=== PATIENT | male | born 1950 | race Caucasian/White ===

== ENCOUNTER 2021-01-18 16:58 | Emergency (ER) | payer OTHER, SELFPAY ==
[2021-01-18 17:32] VITALS: BP 129/71; PULSE 67; RESP 20; TEMP 36.9; O2SAT 99
--- NOTE | 2021-01-18 18:02 | ED.GENADULT ---
HPI - General Adult General Chief complaint: Back Pain/Injury Stated complaint: Fall Injury/Rib,Back Pain Time Seen by Provider: 01/18/21 17:02 Source: patient Mode of arrival: wheelchair Limitations: no limitations History of Present Illness HPI narrative: 70 y/o male. PMHx HTN, HLD, BPH, Chronic pain Sx. Presents to [facility] today with acute complaints of worsening neck and upper back pain S/P fall last HS. Pt reports to have been on a 2-3 foot stepping stool, suffered a mechanical fall, and fell backward onto concrete floor. He denies LOC, but does endorse pain behind his left ear so thinks he may have hit his head'. No focal weakness, paraesthesia, or loss of extremity/Bowel/Bladder control. He reports pain to his bilateral rib spaces, worse with deep inspiration and mild dyspnea. No chest pain, palpitations, edema. He is not on any anticoagulants. He has not yet sought out medical evaluation until now, today. He tells me he has chronic back pain issues, and he is managed on a regimen of Hydrocodone and Morphine. However, his pain has been worsening and refractory to his current regimen. Client is without additional acute c/o illness upon PE. Related Data Home Medications Medication Instructions Recorded Confirmed diclofenac sodium PO 01/18/21 diclofenac sodium TOPICAL 01/18/21 fludrocortisone mg 01/18/21 hydrocodone-acetaminophen tablet 01/18/21 levothyroxine 01/18/21 morphine PO 01/18/21 omeprazole 01/18/21 oxybutynin chloride 01/18/21 prazosin 01/18/21 sertraline mg 01/18/21 simvastatin mg 01/18/21 tamsulosin mg PO 01/18/21 Allergies Allergy/AdvReac Type Severity Reaction Status Date / Time No Known Allergies Allergy Unverified 12/30/15 14:38 Review of Systems Review of Systems: CONSTITUTIONAL: Denies fever, chills, sweats. EYES: Denies visual changes, redness, discharge. ENT: Denies rhinorrhea, congestion, sore throat, otalgia. CARDIOVASCULAR: Denies chest pain, palpitations, edema. RESPIRATORY: Denies dyspnea, wheezing, cough GASTROINTESTINAL: Denies abdominal pain, nausea, vomiting, diarrhea. GENITOURINARY: Denies dysuria, hematuria, abnormal discharge SKIN: Denies rash or itching. MUSCULOSKELETAL: Acute neck pain, back pain, rib pain, left side head pain. NEUROLOGIC: Denies numbness, or focal weakness. PSYCHIATRIC: Denies anxiety or depression. All systems reviewed & are unremarkable except as noted in HPI and below Exam Narrative: GENERAL: This is a well-nourished, well-developed adult, in no apparent distress. HEAD: normocephalic, atraumatic. No obvious ecchymosis or lacerations. EYES: PERRL. Sclera clear/white. EOM intact. EARS: External ears normal. Mild left side head/ear tenderness, no deformity. NOSE: External nose normal. THROAT: Mucous membranes moist. NECK: With midline cervical neck tenderness originating at levels C2-5. Client has been placed in Cervical collar for stabilization. BACK: Midline upper thoracic back tenderness, midline. Lumbar cleared. CARDIOVASCULAR: Regular rate and rhythm without murmurs, gallops, or rubs. Pulses intact all sites. He does exhibit mild bilateral chest wall tenderness. No crepitus or flailing. Chest wall rises symetrically. RESPIRATORY: Clear to auscultation. Breath sounds equal bilaterally. No wheezes, rales, or rhonchi. GASTROINTESTINAL: Abdomen soft, non-tender, nondistended. Bowel sounds are active. No guarding. SKIN: warm, intact. NEURO: Alert, active, and age appropriate. No focal neurologic deficits. No sensory deficits, moves all extremities equally and without difficulties. Course Course Emergency Course: -Fall from reported 2-3 feet, onto back on concrete. -Cervical neck and thoracic back tenderness, on already compromised and chronic spinal process changes. -No focal neurological deficits. -Client placed in cervical collar for stabilization. He will be transferred to [facility] for higher
== END 2021-01-18 18:30 | disposition short-term general hospital (02) ==
PROVIDERS: Emergency Provider Nurse Practitioner Adult Health
DX: M54.2 Cervicalgia (principal); R07.81 Pleurodynia; R06.00 Dyspnea, unspecified; M54.6 Pain in thoracic spine; W17.89XA Other fall from one level to another, initial encounter; I10 Essential (primary) hypertension; E78.5 Hyperlipidemia, unspecified; N40.0 Benign prostatic hyperplasia without lower urinary tract symptoms
CPT/HCPCS: 99212; G0463; L0140

== ENCOUNTER 2021-01-18 19:20 | Emergency (ER) | payer OTHER, SELFPAY ==
--- NOTE | ~2021-01-18 | XR_ITS ---
EXAMINATION: XR thoracic spine 2V EXAM DATE: 01/18/2021 22:28 INDICATION: Trauma, fall. Back pain. TECHNIQUE: Frontal and lateral projections of the thoracic spine as well as lateral swimmers projecti on of the upper thoracic spine for interpretation. There is no prior study for comparison. FINDINGS: There is moderate mid thoracic dextroscoliosis, mild upper thoracic levoscoliosis. Patient has diffuse idiopathic skeletal hyperostosis (DISH). Patient has diffuse idiopathic skeletal hypero stosis (DISH). There are cholecystectomy clips. There are no acute fractures identified. Paraspinal soft tissue is unremarkable. IMPRESSION: Moderate thoracic scoliosis. Reviewed, dictated and finalized at location A. CULTURAL TECHNICAL OFFICER
--- NOTE | ~2021-01-18 | CT_ITS ---
EXAMINATION: CT brain wo con, CT cervical spine wo con EXAM DATE: 01/18/2021 22:38 INDICATION: Head injury. TECHNIQUE: Spiral CT of the head was performed without contrast. Axial, coronal and sagittal images were reviewed. Spiral CT of the cervical spine was performed without contrast. Axial images were rev iewed. Coronal and sagittal reformatted images were also reviewed. The dose-length product (DLP) fo r this examination was 681.00 (accession [id number]), 419.82 (accession [id number]) mGy-cm. The exposure was tailored according to patient size, and iterative reconstruction (ASIR) was used as additional dose reduction technique. There is no prior study for comparison. FINDINGS: HEAD CT: There is no acute intraparenchymal hemorrhage. No evidence of intraparenchymal brain mass l esion. No evidence of acute infarction. There is mild periventricular and subcortical hypodensity, n onspecific but probably related to small vessel ischemic disease. There is moderate prominence of t he sulci and ventricles related to cerebral atrophy. There is no mass effect or midline shift. There is no obstructive hydrocephalus suspected. There are no extra-axial collections. There are no acute calvarial fractures. Patient has had bilateral ocular lens surgery. Soft tissue is unremarkable. Mild bilateral maxillary sinus mucoperiosteal thickening. CERVICAL CT: There is no evidence of acute cervical fracture. The odontoid process is intact. Pre- dens space is normal. Prevertebral soft tissue is normal. There are no soft tissue abnormalities id entified. There is no disc space widening or traumatic vertebral body subluxation suspected. There is mild cervical dextroscoliosis, evidence of upper thoracic levoscoliosis. There is moderate to elena re cervical spondylosis. A detailed level by level evaluation of spondylosis can be added as addendu m if requested. IMPRESSION: 1. No acute intracranial findings or cervical fracture. 2. Age-related intracranial findings. 3. Cervical spondylosis and scoliosis. Reviewed, dictated and finalized at location A. RVISORY AIR INTERCEPT CONTROLLER IMPRESSION: 1. No acute intracranial findings or cervical fracture. 2. Age-related intracranial findings. 3. Cervical spondylosis and scoliosis.
--- NOTE | ~2021-01-18 | XR_ITS ---
EXAMINATION: [id number]_CR EXAM DATE: 01/18/2021 22:28 INDICATION: Initial encounter following injury, with pain of the ribs bilaterally. TECHNIQUE: Frontal projection of the upper left ribs, frontal projection of the lower left ribs, obli que projection of the left ribs. Frontal projection of the upper right ribs, frontal projection of t he lower right ribs, oblique projection of the right ribs, no prior chest x-ray(s) for interpretation . Comparison is made to prior examination from 12/30/2015. FINDINGS: Slight alteration of the right 6th rib posteriorly, age indeterminate fracture. No acute co rtical break identified. Left ribs unremarkable. There are cholecystectomy clips. No confluent con solidation, pneumothorax or pleural effusion suspected. IMPRESSION: Age-indeterminate nondisplaced right 6th rib fracture posteriorly. Reviewed, dictated and finalized at location A. T SORTER
[2021-01-18 19:24] VITALS: BP 155/81; PULSE 62; RESP 18; TEMP 36.9; O2SAT 100
--- NOTE | 2021-01-18 22:09 | ED.GENADULT ---
HPI - General Adult General Chief complaint: Fall Stated complaint: Fall Time Seen by Provider: 01/18/21 21:01 History of Present Illness HPI narrative: Patient is a 62-year-old male who presents ER with pain status post fall. Yesterday evening he was lifting his right leg to step onto the bench when he fell backwards. He struck his head but did not lose consciousness. Since then he has developed pain in his neck as well as his ribs bilaterally. He also has pain in his mid thoracic region. No lower extremity numbness or tingling. No functional deficit. He has not any blood thinners. Related Data Home Medications Medication Instructions Recorded Confirmed diclofenac sodium PO 01/18/21 diclofenac sodium TOPICAL 01/18/21 fludrocortisone mg 01/18/21 hydrocodone-acetaminophen tablet 01/18/21 levothyroxine 01/18/21 morphine PO 01/18/21 omeprazole 01/18/21 oxybutynin chloride 01/18/21 prazosin 01/18/21 sertraline mg 01/18/21 simvastatin mg 01/18/21 tamsulosin mg PO 01/18/21 Allergies Allergy/AdvReac Type Severity Reaction Status Date / Time No Known Allergies Allergy Unverified 12/30/15 14:38 Review of Systems Review of Systems: All systems reviewed & are unremarkable except as noted in HPI and below Constitutional: Constitutional: Denies chills, Denies fever(s) and Denies weakness ENT: Denies nasal congestion and Denies sore throat Cardiovascular: Cardiovascular: Denies chest pain, Denies rapid heart rate and Denies radiating jaw, neck or arm pain Respiratory: Respiratory: Denies cough and Denies dyspnea Musculoskeletal: Musculoskeletal: Reports back pain, Denies arthralgias, Denies joint swelling and Denies muscle cramps Neurologic: Denies syncope, Denies focal weakness and Denies numbness PMFSH Past Medical History Medical History (Updated 01/19/21 @ 00:01 by Parrish Henriquez) Hyperlipidemia Hypothyroidism Surgical History Surgical History (Updated 01/18/21 @ 23:11 by Kody Goodwin MD) History of cholecystectomy Exam Narrative: GENERAL: Well-appearing, well-nourished, and in no acute distress. HEAD: Normocephalic, atraumatic. ENT: Mucous membranes moist. NECK: Supple. C-spine immobilized. CHEST: Clear to auscultation. No respiratory distress. Tender along the ribs laterally without bruising. HEART: Regular rate and rhythm. Normal peripheral pulses. BACK: Tender to palpation at T8 and in the paraspinal musculature at this level. No abrasions or bruising or step-offs. No reproducible lumbar tenderness. EXTREMITIES: Normal range of motion. No edema. SKIN: Warm, dry, no rash. NEURO: Alert and oriented x3. Course Course Emergency Course: Informed of results. C-Spine cleared. D/c home with muscle relaxers. Vital Signs Vital signs: Vital Signs Temperature 98.4 F 01/18/21 19:24 Pulse Rate 62 01/18/21 19:24 Respiratory Rate 18 01/18/21 19:24 Blood Pressure 155/81 H 01/18/21 19:24 Pulse Oximetry 100 01/18/21 19:24 Temperature 98.4 F 01/18/21 19:24 Pulse Rate 52 L 01/18/21 22:48 Respiratory Rate 13 01/18/21 22:48 Blood Pressure 172/65 H 01/18/21 22:48 Pulse Oximetry 97 01/18/21 22:48 Medical Decision Making Vital Signs Vital Signs: Vital Signs Temperature 98.4 F 01/18/21 19:24 Pulse Rate 62 01/18/21 19:24 Respiratory Rate 18 01/18/21 19:24 Blood Pressure 155/81 H 01/18/21 19:24 Pulse Oximetry 100 01/18/21 19:24 Temperature 98.4 F 01/18/21 19:24 Pulse Rate 52 L 01/18/21 22:48 Respiratory Rate 13 01/18/21 22:48 Blood Pressure 172/65 H 01/18/21 22:48 Pulse Oximetry 97 01/18/21 22:48 Discharge Plan Discharge Clinical Impression: Strain of thoracic back region Patient Disposition: Still a Patient Condition: Stable Instructions: Muscle Strain (ED) Additional Instructions: Return the ER if you have chest pain or shortness of breath, you cannot keep down food or water, you lose
[2021-01-18] MEDS: HYDROcodone/acetaminophen (*CRX) 5-325 MG TABLET 1 TAB PO (22:39)
[2021-01-18 22:48] VITALS: BP 172/65; PULSE 52; RESP 13; O2SAT 97
[2021-01-18 23:30] VITALS: BP 164/66; PULSE 65; RESP 13; O2SAT 98
== END 2021-01-18 23:30 | disposition home or self-care (01) ==
PROVIDERS: Emergency Provider Emergency Medicine; PCP Internal Medicine
DX: S29.012A Strain of muscle and tendon of back wall of thorax, initial encounter (principal); E78.5 Hyperlipidemia, unspecified; E03.9 Hypothyroidism, unspecified; W18.39XA Other fall on same level, initial encounter
CPT/HCPCS: 70450; 71111; 72070; 72125; 99284; A9270; L0140

== ENCOUNTER 2021-10-27 10:12 | Emergency (ER) | payer OTHER, SELFPAY ==
[2021-10-27 10:31] VITALS: BP 133/63; PULSE 82; RESP 16; TEMP 36.4; O2SAT 99
--- NOTE | 2021-10-27 10:51 | ED.DENTAL ---
HPI - Dental/Oral General Chief complaint: Dental/Oral Stated complaint: infection in mouth Time Seen by Provider: 10/27/21 10:52 Source: patient Mode of arrival: ambulatory Limitations: no limitations History of Present Illness HPI Narrative: 62-year-old male presented for complaint of multiple mouth sores and tongue coating for about 1 week. They have been using [id number] rinses without relief. Patient states that he has removed the top denture plate since the onset of symptoms but states 1 lesion has increased in size since then. He has been seen by his dentist and they are refitting that top plate. Patient also endorses heart flutters and feeling lightheaded intermittently for a year. He endorses feeling anxious and breathing faster than normal today. states he had a panic attack while in the waiting area. History of wearing CPAP, heart murmur, postural hypotension. Patient currently denies nausea, vomiting, sweating, fevers or chills, cough or wheezing. Related Data Home Medications Medication Instructions Recorded Confirmed diclofenac sodium 1 % topical gel See Rx Instructions .Route .COMPLEX 01/18/21 10/27/21 hydrocodone 10 mg-acetaminophen 1 tablet PO DAILY PRN Pain 01/18/21 10/27/21 325 mg tablet levothyroxine 75 mcg tablet 75 mcg PO DAILY 01/18/21 10/27/21 morphine 15 mg tablet,extended 15 mg PO BID 01/18/21 10/27/21 release omeprazole 20 mg capsule,delayed 20 mg PO BID 01/18/21 10/27/21 release oxybutynin chloride 5 mg tablet 5 mg PO BID 01/18/21 10/27/21 prazosin 2 mg capsule 2 mg PO BID 01/18/21 10/27/21 sertraline 100 mg tablet 100 mg PO DAILY 01/18/21 10/27/21 simvastatin 80 mg tablet 80 mg PO HS 01/18/21 10/27/21 tamsulosin 0.4 mg capsule 0.4 mg PO BID 01/18/21 10/27/21 B cplx 4-vit D3 1,750 unit-C 60 1 tablet PO DAILY 01/19/21 10/27/21 mg-folic acid 1 mg-zinc 12.5 mg tablet aloe vera 1 applic topical 4-12XD PRN Pain, 01/19/21 10/27/21 Moderate aripiprazole 10 mg tablet (Abilify) 5 mg PO DAILY 01/19/21 10/27/21 ascorbate calcium (vitamin C) 500 500 mg PO BID 01/19/21 10/27/21 mg capsule biotin 1 mg capsule 1 mg PO DAILY 01/19/21 10/27/21 calcium carb-vitamin D3 ER 600 mg tablet PO 01/19/21 (1,500 mg)-500 unit tablet,ER 24 hr cholecalciferol (vitamin D3) 100 100 mcg PO DAILY 01/19/21 10/27/21 mcg (4,000 unit) capsule divalproex 500 mg tablet,delayed 500 mg PO HS 01/19/21 10/27/21 release (Depakote) duloxetine 30 mg capsule,delayed 30 mg PO BID 01/19/21 10/27/21 release lysine 325 mg tablet 325 mg PO DAILY 01/19/21 prazosin 2 mg capsule 2 mg PO HS 01/19/21 10/27/21 vitamin B complex (B 1 tablet PO DAILY 01/19/21 10/27/21 Complex-Vitamin B12 tablet) Allergies Allergy/AdvReac Type Severity Reaction Status Date / Time No Known Allergies Allergy Verified 10/27/21 10:48 Review of Systems Review of Systems: CONSTITUTIONAL: Denies body aches, fever, chills, or sweats. EYES: Denies visual changes, redness, or discharge. ENT: Reports mouth sores; Denies rhinorrhea, congestion, or otalgia. CARDIOVASCULAR: Reports flutter Denies chest pain, or edema. RESPIRATORY: Denies cough or dyspnea. GASTROINTESTINAL: Denies abdominal pain, nausea, vomiting, or diarrhea. GENITOURINARY: Denies dysuria or hematuria. SKIN: Denies rash, itching, or wounds. MUSCULOSKELETAL: Denies back pain, joint pain, or myalgia. NEUROLOGIC: Denies headache PSYCH: reports anxiety. All systems reviewed & are unremarkable except as noted in HPI and below PMFSH Past Medical History Medical History Hyperlipidemia Hypothyroidism Surgical History Surgical History History of cholecystectomy Comments At time of signature, I have reviewed and agree with nursing past medical, surgical, social and family history unless otherwise noted. Please see nursing chart for further informat
--- NOTE | 2021-10-27 11:17 | ECG_ITS ---
Measurements Intervals [place] Rate: 65 P: 25 AL: 192 QRS: 29 QRSD: 97 T: 66 QT: 413 QTc: 431 Interpretive Statements SINUS RHYTHM NORMAL ECG NO PREVIOUS ECG AVAILABLE FOR COMPARISON Electronically Signed On 10-27-2021 12:36:09 CDT by Thang Sherman M.D.
== END 2021-10-27 11:44 | disposition home or self-care (01) ==
PROVIDERS: Emergency Provider Nurse Practitioner Family; PCP Internal Medicine
DX: K12.0 Recurrent oral aphthae (principal); B37.0 Candidal stomatitis; R42 Dizziness and giddiness; E78.5 Hyperlipidemia, unspecified; E03.9 Hypothyroidism, unspecified; R01.1 Cardiac murmur, unspecified
CPT/HCPCS: 93005; 99213; G0463

== ENCOUNTER 2022-06-12 17:17 | Emergency (ER) | payer OTHER, SELFPAY ==
--- NOTE | ~2022-06-12 | XR_ITS ---
EXAM: XR ankle LT min 3V, XR foot LT min 3V DATE: 06/12/2022 17:58 HISTORY: FALL DOWN STAIRS X 20 DAYS, GEN ANKLE PAIN, FOOT SWELLING . COMPARISON: None available. FINDINGS: Normal mineralization. Transverse, minimally distracted fracture at the tip of the left la teral malleolus. Questionable cortical irregularity along the proximal and lateral aspect of the left fifth proximal phalange. No lytic or blastic lesion. Scattered degenerative changes. Plantar and Ach illes enthesopathy. No erosion or periosteal change. Soft tissue swelling about the ankle and foot. IMPRESSION: Subacute minimally distracted lateral malleolus avulsion fracture. Question subacute obli que fracture on the proximal and lateral aspect of the left fifth proximal phalange, correlate with p oint tenderness. Reviewed, dictated and finalized at location K. IMPRESSION: Subacute minimally distracted lateral malleolus avulsion fracture. Question subacute oblique fracture on the proximal and lateral aspect of the le ft fifth proximal phalange, correlate with point tenderness.
[2022-06-12 17:28] VITALS: BP 131/64; PULSE 82; RESP 16; TEMP 36.9; O2SAT 98
--- NOTE | 2022-06-12 17:47 | ED.GENADULT ---
HPI - General Adult General Chief complaint: Extremity Injury, Lower Stated complaint: Left Ankle Injury Source: patient Mode of arrival: ambulatory Limitations: no limitations History of Present Illness HPI narrative: Patient presents for evaluation of pain in left ankle and foot. He indicates he fell down 2 steps outdoors on 05/22/2022. He did not his head. No loss of consciousness. He did not seek medical attention. He now reports a constant dull ache in the left ankle that he rates 7/10 severity. Reports bruising to left ankle left foot. He has some mild pain in the left foot. Denies any pain proximal to left ankle. He is not taking any medication to assist with the symptoms. Denies any calf pain. He does not smoke. No additional complaints or concerns. Related Data Home Medications Medication Instructions Recorded Confirmed diclofenac sodium 1 % topical gel See Rx Instructions .Route .COMPLEX 01/18/21 06/12/22 hydrocodone 10 mg-acetaminophen 1 tablet PO DAILY PRN Pain 01/18/21 06/12/22 325 mg tablet levothyroxine 75 mcg tablet 75 mcg PO DAILY 01/18/21 06/12/22 morphine 15 mg tablet,extended 15 mg PO BID 01/18/21 06/12/22 release omeprazole 20 mg capsule,delayed 20 mg PO BID 01/18/21 06/12/22 release oxybutynin chloride 5 mg tablet 5 mg PO BID 01/18/21 06/12/22 prazosin 2 mg capsule 2 mg PO BID 01/18/21 06/12/22 sertraline 100 mg tablet 100 mg PO DAILY 01/18/21 06/12/22 simvastatin 80 mg tablet 80 mg PO HS 01/18/21 06/12/22 tamsulosin 0.4 mg capsule 0.4 mg PO BID 01/18/21 06/12/22 B cplx 4-vit D3 1,750 unit-C 60 1 tablet PO DAILY 01/19/21 06/12/22 mg-folic acid 1 mg-zinc 12.5 mg tablet aripiprazole 10 mg tablet (Abilify) 5 mg PO DAILY 01/19/21 06/12/22 biotin 1 mg capsule 1 mg PO DAILY 01/19/21 06/12/22 divalproex 500 mg tablet,delayed 500 mg PO HS 01/19/21 06/12/22 release (Depakote) duloxetine 30 mg capsule,delayed 30 mg PO BID 01/19/21 06/12/22 release prazosin 2 mg capsule 2 mg PO HS 01/19/21 06/12/22 vitamin B complex (B 1 tablet PO DAILY 01/19/21 06/12/22 Complex-Vitamin B12 tablet) Allergies Allergy/AdvReac Type Severity Reaction Status Date / Time No Known Allergies Allergy Verified 06/12/22 17:36 Review of Systems Review of Systems: CONSTITUTIONAL: Denies fever, chills, or sweats. EYES: Denies visual changes, redness, or discharge. ENT: Denies rhinorrhea, congestion, sore throat, or otalgia. CARDIOVASCULAR: Denies chest pain, palpitations, or edema. RESPIRATORY: Denies cough or dyspnea. GASTROINTESTINAL: Denies abdominal pain, nausea, vomiting, or diarrhea. GENITOURINARY: Denies dysuria or hematuria. SKIN: Reports present to the left ankle and foot. MUSCULOSKELETAL: Reports pain and swelling to the left ankle and foot NEUROLOGIC: Denies headache, numbness, dizziness, or weakness. PSYCHIATRIC: Denies anxiety or depression. [facility] Past Medical History Medical History (Updated 06/12/22 @ 18:54 by Thang Burton, MARKETING SALES CONSULTANT, ) Hyperlipidemia Hypothyroidism Left fibular fracture PTSD (post-traumatic stress disorder) Surgical History Surgical History History of cholecystectomy Family History Family History Mother Family history non-contributory Social History Social History Substance use: never Living arrangements: with family Gender identity (if verbalized by the patient): Male Sexual Orientation (if Verbalized by the Patient): Straight or Heterosexual Spiritual care concerns: No Exam Narrative: GENERAL: Well-appearing, well-nourished, and in no acute distress. HEAD: Normocephalic, atraumatic. EYES: PERRLA and EOMI. ENT: Nares clear, no rhinorrhea or epistaxis. Mucous membranes moist. Oropharynx without tonsillar hypertrophy exudate or other lesions. Bilateral TMs pearly
== END 2022-06-12 19:00 | disposition home or self-care (01) ==
PROVIDERS: Emergency Provider Nurse Practitioner; PCP Internal Medicine
DX: S82.62XA Displaced fracture of lateral malleolus of left fibula, initial encounter for closed fracture (principal); W10.9XXA Fall (on) (from) unspecified stairs and steps, initial encounter; E78.5 Hyperlipidemia, unspecified; E03.9 Hypothyroidism, unspecified; F43.10 Post-traumatic stress disorder, unspecified
CPT/HCPCS: 29515; 73610; 73630; 99214; G0463

== ENCOUNTER 2023-02-24 14:39 | Emergency (ER) | payer OTHER, SELFPAY ==
--- NOTE | ~2023-02-24 | XR_ITS ---
EXAMINATION: XR chest 2V DATE: 02/24/2023 15:22 INDICATION: Cough and shortness of breath. TECHNIQUE: Frontal and lateral views of the chest were obtained. COMPARISON: Chest 2 views 12/30/2015 FINDINGS: There are airspace opacities in lower lung zones. No pleural effusion or pneumothorax. The heart size is normal. IMPRESSION: 1. Airspace opacities in the lower lung zones, consistent with atelectasis versus pneumonia. Reviewed, dictated and finalized at location A. [employer] IMPRESSION: 1. Airspace opacities in the lower lung zones, consistent with atelectasis vers us pneumonia.
[2023-02-24 14:50] VITALS: BP 132/60; PULSE 100; RESP 18; TEMP 37.6; O2SAT 94
--- NOTE | 2023-02-24 15:14 | ED.GENADULT ---
HPI - General Adult General Chief complaint: Upper Respiratory Infection Stated complaint: Cough/Shortness of Breath Source: patient, RN notes reviewed and old records reviewed Mode of arrival: ambulatory Limitations: no limitations History of Present Illness HPI narrative: 9-year-old male presents to [facility] with complaint cough, congestion, myalgia, fever for 2-3 days. Patient states having difficulty taking deep breaths. Patient denies chest pain, weakness, dizziness, vomiting. Related Data Home Medications Medication Instructions Recorded Confirmed diclofenac sodium 1 % topical gel See Rx Instructions .Route .COMPLEX 01/18/21 06/12/22 hydrocodone 10 mg-acetaminophen 1 tablet PO DAILY PRN Pain 01/18/21 06/12/22 325 mg tablet levothyroxine 75 mcg tablet 75 mcg PO DAILY 01/18/21 06/12/22 morphine 15 mg tablet,extended 15 mg PO BID 01/18/21 06/12/22 release omeprazole 20 mg capsule,delayed 20 mg PO BID 01/18/21 06/12/22 release oxybutynin chloride 5 mg tablet 5 mg PO BID 01/18/21 06/12/22 prazosin 2 mg capsule 2 mg PO BID 01/18/21 06/12/22 sertraline 100 mg tablet 100 mg PO DAILY 01/18/21 06/12/22 simvastatin 80 mg tablet 80 mg PO HS 01/18/21 06/12/22 tamsulosin 0.4 mg capsule 0.4 mg PO BID 01/18/21 06/12/22 B cplx 4-vit D3 1,750 unit-C 60 1 tablet PO DAILY 01/19/21 06/12/22 mg-folic acid 1 mg-zinc 12.5 mg tablet aripiprazole 10 mg tablet (Abilify) 5 mg PO DAILY 01/19/21 06/12/22 biotin 1 mg capsule 1 mg PO DAILY 01/19/21 06/12/22 divalproex 500 mg tablet,delayed 500 mg PO HS 01/19/21 06/12/22 release (Depakote) duloxetine 30 mg capsule,delayed 30 mg PO BID 01/19/21 06/12/22 release prazosin 2 mg capsule 2 mg PO HS 01/19/21 06/12/22 vitamin B complex (B 1 tablet PO DAILY 01/19/21 06/12/22 Complex-Vitamin B12 tablet) Allergies Allergy/AdvReac Type Severity Reaction Status Date / Time No Known Allergies Allergy Verified 06/12/22 17:36 Review of Systems Constitutional: Constitutional: Reports as per HPI, Reports body ache(s), Denies chills, Reports fatigue, Reports fever(s) and Denies headache(s) Eyes: Eyes: Reports no additional eye complaints and Denies blurry vision ENT: Reports as per HPI, Denies vertigo, Denies dizziness, Denies ear discharge, Denies otalgia, Denies facial pain, Denies headache(s), Reports nasal congestion, Reports nasal discharge, Denies sinus pain, Denies sinus pressure and Denies sore throat Cardiovascular: Cardiovascular: Reports no additional cardiovascular complaints, Denies chest pain, Denies chest pain at rest, Denies rapid heart rate and Denies dyspnea Respiratory: Respiratory: Reports as per HPI, Reports chest congestion, Reports cough, Denies pain on inspiration, Reports pain with cough and Denies dyspnea Gastrointestinal: Gastrointestinal: Denies abdominal pain, Denies diarrhea, Denies nausea and Denies vomiting Integumentary/Breasts: Skin/Breast: Denies rash Neurologic: Reports system reviewed and no additional complaints, except as documented, Denies vertigo, Denies dizziness and Denies headache(s) Endocrine: Endocrine: Denies fatigue PMFSH Past Medical History Medical History Hyperlipidemia Hypothyroidism Left fibular fracture PTSD (post-traumatic stress disorder) Surgical History Surgical History History of cholecystectomy Family History Family History Mother Family history non-contributory Social History Social History Substance use: never Living arrangements: with family Gender identity (if verbalized by the patient): Male Sexual Orientation (if Verbalized by the Patient): Straight or Heterosexual Spiritual care concerns: No Comments At the time of my signature, I reviewed and agree with the nursing p
== END 2023-02-24 15:47 | disposition home or self-care (01) ==
PROVIDERS: Emergency Provider Registered Nurse; PCP Internal Medicine
DX: J10.1 Influenza due to other identified influenza virus with other respiratory manifestations (principal); J10.00 Influenza due to other identified influenza virus with unspecified type of pneumonia; Z20.822 Contact with and (suspected) exposure to COVID-19; E78.5 Hyperlipidemia, unspecified; E03.9 Hypothyroidism, unspecified; F43.10 Post-traumatic stress disorder, unspecified
CPT/HCPCS: 71046; 87426; 87804; 99213; C9803; G0463

== ENCOUNTER 2023-07-04 16:30 | Emergency (ER) | payer OTHER, SELFPAY ==
--- NOTE | ~2023-07-04 | XR_ITS ---
EXAMINATION: XR chest 2V DATE: 07/04/2023 17:17 INDICATION: Decreased breath sounds and cough and congestion TECHNIQUE: PA and lateral views of the chest were obtained. COMPARISON: Chest radiograph dated 02/24/2023 FINDINGS: Again seen are opacities in the bilateral posterior lower lung zones but with improvement when compar ed with the prior study. No pulmonary edema, pleural effusion or pneumothorax. Heart size is normal. 60 degrees thoracic dextroscoliosis with moderate spondylosis. IMPRESSION: 1. Mild opacities in the bilateral lower lung zones which could represent atelectasis or pneumonia. Reviewed, dictated and finalized at location A. IMPRESSION: 1. Mild opacities in the bilateral lower lung zones which could represent atele ctasis or pneumonia.
[2023-07-04 16:44] VITALS: BP 122/61; PULSE 81; RESP 16; TEMP 36.6; O2SAT 97
--- NOTE | 2023-07-04 16:49 | ED.URI ---
HPI - URI/Sore Throat General Chief Complaint: Upper Respiratory Infection Stated Complaint: Cough/Congestion Time Seen by Provider: 07/04/23 16:50 Source: patient, RN notes reviewed and old records reviewed Mode of arrival: ambulatory Limitations: no limitations History of Present Illness HPI Narrative: 72 year old male who presents to express care with complaints of cough with congestion, feeling extremely fatigued with some dyspnea with minimal exertion, and expectoration of singh green phlegm. Patient reports that his symptoms started on the of this month and received oral antibiotics of Augmentin on the and has taken the full prescription. Patient reports that he remains weak with some dyspnea with exertion, has worsened productive cough of grayish green mucous does not feel any better. Patient reports that he has sleep apnea and is on Bi Pap at home. Patient does admit to some intermittent fevers, chills, and sweats. MD elicited complaint: cough and other (chest congestion,[place], weak fatigued) Pertinent past history: pneumonia (CAP) Onset (ago): week(s) (initial symptoms started 06/24 have not improved with oral antibiotics) Consistency: progressively worsening Severity: moderate Able to tolerate fluids by mouth: Yes Exacerbating factors: exertion Treatments prior to arrival: antibiotics Related Data Home Medications Medication Instructions Recorded Confirmed diclofenac sodium 1 % topical gel See Rx Instructions .Route .COMPLEX 01/18/21 07/04/23 levothyroxine 75 mcg tablet 75 mcg PO DAILY 01/18/21 07/04/23 omeprazole 20 mg capsule,delayed 20 mg PO BID 01/18/21 07/04/23 release oxybutynin chloride 5 mg tablet 10 mg PO BID 01/18/21 07/04/23 sertraline 100 mg tablet 200 mg PO DAILY 01/18/21 07/04/23 simvastatin 80 mg tablet 80 mg PO HS 01/18/21 07/04/23 tamsulosin 0.4 mg capsule 0.4 mg PO BID 01/18/21 07/04/23 prazosin 2 mg capsule 2 mg PO HS 01/19/21 07/04/23 diclofenac sodium 75 mg 75 mg PO BID 02/24/23 07/04/23 tablet,delayed release fluticasone propionate 50 2 spray intranasal DAILY 02/24/23 07/04/23 mcg/actuation nasal spray,suspension hydrocodone 10 mg-acetaminophen 1 tablet PO BID PRN Pain (Scale 07/04/23 07/04/23 325 mg tablet Score 7-10) Allergies Allergy/AdvReac Type Severity Reaction Status Date / Time No Known Allergies Allergy Verified 07/04/23 16:49 Review of Systems Review of Systems: CONSTITUTIONAL: Reports intermittent fever, chills, or sweats. EYES: Denies visual changes, redness, or discharge. ENT: Reports rhinorrhea, congestion, no sore throat, or otalgia. CARDIOVASCULAR: Denies chest pain, palpitations, or edema. RESPIRATORY: Reports productive cough and dyspnea with minimal exertion GASTROINTESTINAL: Denies abdominal pain, nausea, vomiting, or diarrhea. GENITOURINARY: Denies dysuria or hematuria. SKIN: Denies rash or itching. MUSCULOSKELETAL: Reports history of chronic back and neck pain with scoliosis and spinal stenosis, NEUROLOGIC: Denies headache, numbness, or weakness. PSYCHIATRIC: Reports history of anxiety or depression. All systems reviewed & are unremarkable except as noted in HPI and below PMFSH Past Medical History Medical History (Updated 07/05/23 @ 16:40 by Samira French NP) Anxiety and depression Chronic back pain scoliosis and spinal stenosis sees pain management GERD (gastroesophageal reflux disease) Hyperlipidemia Hypothyroidism Left fibular fracture LUDIN treated with BiPAP PTSD (post-traumatic stress disorder) Surgical History Surgical History (Updated 07/05/23 @ 16:25 by Samira French NP) History of cholecystectomy History of intestinal surgery History of surgical removal of ganglion cyst History of tonsillectomy Family History Family History Mother Family history non-contributory Social History Social History (Updated 07/04/23 @ 16:56 by Samira French NP) Franck
--- NOTE | 2023-07-04 17:05 | PC.NURSE ---
AMBULATED WITH STANDBY ASSIST TO XRAY AND THEN PULSE OX=96%
== END 2023-07-04 17:49 | disposition short-term general hospital (02) ==
PROVIDERS: Emergency Provider Registered Nurse; PCP Internal Medicine
DX: J18.1 Lobar pneumonia, unspecified organism (principal); Z20.822 Contact with and (suspected) exposure to COVID-19; Z87.891 Personal history of nicotine dependence; K21.9 Gastro-esophageal reflux disease without esophagitis; E78.5 Hyperlipidemia, unspecified; E03.9 Hypothyroidism, unspecified; G47.33 Obstructive sleep apnea (adult) (pediatric); F41.9 Anxiety disorder, unspecified; F32.A Depression, unspecified
CPT/HCPCS: 71046; 87426; 87804; 99215; G0463

== ENCOUNTER 2023-10-04 19:03 | Emergency (ER) | payer OTHER, SELFPAY ==
[2023-10-04 19:14] VITALS: BP 151/56; PULSE 64; RESP 16; TEMP 36.5; O2SAT 98
--- NOTE | 2023-10-04 19:16 | ED.URI ---
HPI - URI/Sore Throat General Chief Complaint: Upper Respiratory Infection Stated Complaint: Chest Congestion Time Seen by Provider: 10/04/23 19:16 Source: patient Mode of arrival: ambulatory Limitations: no limitations History of Present Illness HPI Narrative: 72-year-old male presents with complaint of cough, chest congestion, fatigue for 4 days. Has felt feverish but did not check temperature. Denies nausea vomiting diarrhea. Reports chest pain when taking deep breath. Denies shortness of breath. Not taking any [id number] cough medication. All systems reviewed and negative except as noted above. Related Data Home Medications Medication Instructions Recorded Confirmed diclofenac sodium 1 % topical gel See Rx Instructions .Route .COMPLEX 01/18/21 10/04/23 levothyroxine 75 mcg tablet 75 mcg PO DAILY 01/18/21 10/04/23 omeprazole 20 mg capsule,delayed 20 mg PO BID 01/18/21 10/04/23 release oxybutynin chloride 5 mg tablet 10 mg PO BID 01/18/21 10/04/23 sertraline 100 mg tablet 200 mg PO DAILY 01/18/21 10/04/23 simvastatin 80 mg tablet 80 mg PO HS 01/18/21 10/04/23 tamsulosin 0.4 mg capsule 0.4 mg PO BID 01/18/21 10/04/23 prazosin 2 mg capsule 2 mg PO HS 01/19/21 10/04/23 diclofenac sodium 75 mg 75 mg PO BID 02/24/23 10/04/23 tablet,delayed release fluticasone propionate 50 2 spray intranasal DAILY 02/24/23 10/04/23 mcg/actuation nasal spray,suspension hydrocodone 10 mg-acetaminophen 1 tablet PO BID PRN Pain (Scale 07/04/23 10/04/23 325 mg tablet Score 7-10) Allergies Allergy/AdvReac Type Severity Reaction Status Date / Time No Known Allergies Allergy Verified 10/04/23 19:19 Review of Systems Review of Systems: CONSTITUTIONAL: Denies fever, chills, or sweats. Reports fatigue. EYES: Denies visual changes, redness, or discharge. ENT: Reports rhinorrhea, congestion. Denies sore throat, or otalgia. CARDIOVASCULAR: Denies chest pain, palpitations, or edema. RESPIRATORY: Reports cough. Denies dyspnea. GASTROINTESTINAL: Denies abdominal pain, nausea, vomiting, or diarrhea. GENITOURINARY: Denies dysuria or hematuria. SKIN: Denies rash or itching. MUSCULOSKELETAL: Denies back pain, joint pain, or myalgia. NEUROLOGIC: Denies headache, numbness, or weakness. PSYCHIATRIC: Denies anxiety or depression. All other systems reviewed are negative, except as documented in HPI. [facility] Past Medical History Medical History (Updated 10/04/23 @ 19:28 by Candace Keene NP) Anxiety and depression Chronic back pain scoliosis and spinal stenosis sees pain management GERD (gastroesophageal reflux disease) Hyperlipidemia Hypothyroidism Left fibular fracture LUDIN treated with BiPAP PTSD (post-traumatic stress disorder) Surgical History Surgical History (Updated 07/05/23 @ 16:25 by Samira French NP) History of cholecystectomy History of intestinal surgery History of surgical removal of ganglion cyst History of tonsillectomy Family History Family History Mother Family history non-contributory Social History Social History (Updated 07/04/23 @ 16:56 by Samira French NP) Smoking status: Former smoker Tobacco type: cigarettes Additional smoking assessment comments: quit 30 years ago Substance use: never Substance use type: opiates Last use: Hydrocodone for chronic pain Living arrangements: with family Gender identity (if verbalized by the patient): Male Sexual Orientation (if Verbalized by the Patient): Straight or Heterosexual Spiritual care concerns: No Comments At time of signature, agree with nursing past medical, surgical, social and family history. There is no relevant family history pertinent to the presenting complaint. Exam Narrative: GENERAL: This is a well-nourished, well-developed patient, in no apparent distress. HEAD: normocephalic, atraumatic. EYES: PERRL. Sclera clear/white. Vision is g
== END 2023-10-04 19:35 | disposition home or self-care (01) ==
PROVIDERS: Emergency Provider Nurse Practitioner Family; PCP Internal Medicine
DX: U07.1 COVID-19 (principal); Z87.891 Personal history of nicotine dependence; K21.9 Gastro-esophageal reflux disease without esophagitis; E78.5 Hyperlipidemia, unspecified; E03.9 Hypothyroidism, unspecified; F41.9 Anxiety disorder, unspecified; F32.A Depression, unspecified
CPT/HCPCS: 87426; 99213; G0463